=== PATIENT | male | born 1985 | race American Indian/Alaskan Native ===

== ENCOUNTER 2022-01-19 10:04 | Emergency (ER) | payer SELFPAY ==
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
[2022-01-19 11:18] VITALS: BP 125/82
[2022-01-19] MEDS ORDERED: diphenhydrAMINE 25 MG CAP PO ONE (11:46)
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
[2022-01-19] MEDS ORDERED: HYDROcodone/ACETAMINOPHEN 5-325 MG TAB PO ONE (12:18)
[2022-01-19] MEDS ORDERED: AMOXICILLIN/K CLAV 875/125MG TAB PO ONE (12:18)
[2022-01-19] MEDS ORDERED: TETANUS,DIPH,PERTUSS(ACELL) VACCINE 0.5 ML SYRINGE IM ONE (12:40)
== END 2022-01-19 13:02 | disposition home or self-care (01) ==
LOC: ED 10:04
DX: G89.29 Other chronic pain (principal); H60.12 Cellulitis of left external ear; M79.672 Pain in left foot; M79.671 Pain in right foot; Z91.040 Latex allergy status; Z98.890 Other specified postprocedural states
CPT/HCPCS: 70450; 90471; 90715; 99283